=== PATIENT | female | born 1940 | race Caucasian/White ===

== ENCOUNTER 2018-12-23 20:44 | Observation (INO) | payer OTHER ==
[~2018-12-23] VITALS: Ht 165.1 cm; Wt 79.4 kg
[~2018-12-23 20:44] MED LIST: ANTIVERT12.5 MG PO; BUSPAR5 MG PO; GLIPIZIDE10 MG PO; LISINOPRIL20 MG PO; LOVASTATIN20 MG PO; METFORMIN HCL1000 MG PO; METOPROLOL TART25 M1 PO; OMEPRAZOLE DR20 M1 PO; VERAPAMIL240 M1 PO
[2018-12-23 21:28] LABS: BASOPHIL % 0.6 % (0-2); PLATELET COUNT 262 x10^3mcL (130-400)
[2018-12-23 21:29] LABS: RED CELL DISTRIBUTION WIDTH 16.2 % (11.5-14.5)
[2018-12-23 21:35] VITALS: Ht 165.1 cm; Wt 79.4 kg
--- NOTE | 2018-12-23 21:35 | NUR ---
PT. BIB AMBULACE FOR C/O GENERALIZED WEAKNESS, HEAVY FEELING IN SHOULDERS, AND N/V X1 EPISODE TODAY. DENIES CHEST PAIN OR FEELING SOB. STATES SHE HAD SOME CHANGES IN HER MEDICATIONS FEW DAY AGO AND RECENTLY STARTED TAKEN NEW B/P MEDICATION. PT. AAOX4, TALKING AND RESPONDING APPROPRIALTEY, BREATHING E/U. NAD. DENIES CHEST PAIN AT THIS TIME. FAMILY AT BEDSIDE. WILL CONTINUE TO MONITOR.
[2018-12-23 21:37] LABS: CALCIUM 8.7 mg/dL (8.5-10.1); CARBON DIOXIDE 25.4 mmol/L (21-32); CHLORIDE SERUM 100 mmol/L (98-107); CREATININE SERUM 1.5 mg/dL (0.6-1.0); GLUCOSE SERUM 269 mg/dL (74-106); POTASSIUM SERUM 4.8 mmol/L (3.5-5.1); SODIUM SERUM 134 mmol/L (136-145)
[2018-12-23 21:42] LABS: ALKALINE PHOSPHATASE 72 U/L (46-116); ALT/SGPT 156 U/L (14-59); AST/SGOT 220 U/L (15-37); BILIRUBIN TOTAL 0.29 mg/dL (0.20-1.00); TOTAL PROTEIN, SERUM 6.8 g/dL (6.4-8.2)
--- NOTE | 2018-12-23 22:37 | NUR ---
PT. LAYING ON GURNEY IN POSITION OF COMFORT, BREATHING E/U. AOOX4, NOT IN ANY APPARENT DISTRESS AT THIS TIME. CALL LIGHT IN REACH. FAMILY AT BEDSIDE. WILL CONTINUE TO MONITOR.
--- NOTE | 2018-12-23 22:39 | NUR ---
PT. PLACED ON BED OLVERA TO COLLECT URINE SAMPLE.
--- NOTE | 2018-12-23 22:54 | NUR ---
PT. UNABLE TO VOID AT THIS TIME.
--- NOTE | 2018-12-23 23:45 | NUR ---
PT. UP TO RESTROOM, AMBULATES WITH STEADY GAIT.
[2018-12-24] MEDS ORDERED: TENORMIN100 MG (00:13)
[2018-12-24] MEDS ORDERED: OYSCO 500-VIT1 EACH (00:13)
[2018-12-24] MEDS ORDERED: ACT30 (00:13)
[2018-12-24] MEDS ORDERED: SIMVASTATIN20 M1 (00:14)
--- NOTE | 2018-12-24 00:36 | NUR ---
REPORT GIVEN TO HELLEN PRITCHETT FOR FURTHER CARE OF PATIENT, ALL QUESTIONS AND CONCERNS ADDRESSED. WILL BE TRANSFERED TO TELE [id number].
--- NOTE | 2018-12-24 00:50 | NUR ---
RECEIVED PT VIA [facility] FROM E/D, ACCOMPANIED BY RN, TRANSPORTER, AND DAUGHTER (KYRIE PEARSON). PT A/A/O X 4, CALM, COOPERATIVE. PT AMBULATED FROM [place] TO BED WITHOUT GAIT OR BALANCE IMPAIRMENT; PT DENIES WEAKNESS AT THIS TIME. ON TELE # [id number], SB, HR 59, DENIES CHEST PAIN OR DISCOMFORT AT THIS TIME. NO ACUTE RESPIRATORY DISTRESS NOTED. IV SITE LAC 20G, CDI. ORIENTED PT AN DAUGHTER TO ROOM, BED CONTROLS, CALL LIGHT SYSTEM. SIDE RAILS UP X 2, BED IN LOW POSITION. WILL ENDORSE TO [facility].
[2018-12-24 00:56] LABS: UA SPECIFIC GRAVITY >=1.030 (1.005-1.035)
[2018-12-24 00:57] LABS: microscopic required? YES; urine erythrocyte TRACE (NEGATIVE)
[2018-12-24 01:14] VITALS: BP 122/51
--- NOTE | 2018-12-24 05:40 | NUR ---
PT SLEPT WELL DURING SHIFT. NO SOB ON ROOM AIR. NO C/O PAIN. DENIES DIZZINESS OR NAUSEA. NO DISTRESS NOTED. SAFETY MEASURES MAINTAINED. CALL LIGHT WITHIN REACH. WILL ENDORSE CONTINUITY OF CARE TO ONCOMING RN.
[2018-12-24 05:46] VITALS: BP 120/45
[2018-12-24 06:14] LABS: BASOPHIL % 0.3 % (0-2); PLATELET COUNT 238 x10^3mcL (130-400)
[2018-12-24 06:25] LABS: CALCIUM 8.1 mg/dL (8.5-10.1); CHLORIDE SERUM 106 mmol/L (98-107); CREATININE SERUM 1.1 mg/dL (0.6-1.0); GLUCOSE SERUM 159 mg/dL (74-106); POTASSIUM SERUM 4.2 mmol/L (3.5-5.1); SODIUM SERUM 137 mmol/L (136-145)
[2018-12-24 06:40] LABS: RED CELL DISTRIBUTION WIDTH 16.1 % (11.5-14.5)
[2018-12-24 07:29] VITALS: BP 126/61
--- NOTE | 2018-12-24 07:38 | NUR ---
RECEIVED PATIENT FROM [facility]REY[facility] MACEDO,PATIENT IN BED RESTING. NO COMPLAINTS OF PAIN AT THIS TIME. DENIES DIZZINESS OR SYNCOPAL EPISODE. WILL CONTINUE TO MONITOR. CALL LIGHT IN REACH.
--- NOTE | 2018-12-24 09:37 | NUR ---
SPOKE WITH DR HEARD ABOUT PATIENT PLAN OF CARE. STATES HE WILL OBSERVE PATIENT FOR A FEW MORE HOURS & DISCHARGE HER AFTER LUNCH. WILL DC HOME [facility]. WILL NOTIFY CHARGE NURSE DEL. PATIENT IN BED AT THIS TIME, NO COMPLAINTS.
[2018-12-24 10:45] VITALS: BP 126/61
--- NOTE | 2018-12-24 12:12 | NUR ---
INFORMED BY SILVA BARROW THAT PATIENT STATES SHE IS FEELING SWEATY WITH "HOT FLASHES". BS CHECK W 58. ORANGE JUICE GIVEN PO, WILL RETAKE BS IN 15 MINS.
[2018-12-24 12:15] VITALS: BP 126/70
--- NOTE | 2018-12-24 14:38 | NUR ---
PATIENT IN BED W NO COMPLAINTS. DAUGHTER AT BEDSIDE. DISCHARGE INSTRUCTIONS EXPLAINED TO PATIENT. ALL QUESTIONS ANSWERED. TELE MONITOR RETURNED TO [facility], IV CATHETER REMOVED AND INTACT. DISCHARGE PACKET GIVEN TO PATIENT, PATIENT WILL BE ESCORTED DOWN STAIRS VIA WHEELCHAIR W SILVA BARROW. PATIENT WITH BELONGINGS.
== END 2018-12-24 14:48 | disposition home or self-care (01) | DRG 312 ==
LOC: ED 20:44 → DU 23:24
PROVIDERS: Emergency Medicine; ADMIT Internal Medicine Pulmonary Disease
DX: R55 Syncope and collapse (principal); N17.9 Acute kidney failure, unspecified; R00.1 Bradycardia, unspecified; T46.1X5A Adverse effect of calcium-channel blockers, initial encounter; T44.7X5A Adverse effect of beta-adrenoreceptor antagonists, initial encounter; E86.0 Dehydration; E11.9 Type 2 diabetes mellitus without complications; I10 Essential (primary) hypertension; E78.5 Hyperlipidemia, unspecified; F32.9 Major depressive disorder, single episode, unspecified; F41.9 Anxiety disorder, unspecified; Z85.828 Personal history of other malignant neoplasm of skin; Y92.009 Unspecified place in unspecified non-institutional (private) residence as the place of occurrence of the external cause
CPT/HCPCS: 82962; G0378; J1650; J7030; J8597; Q0092

== ENCOUNTER 2019-05-28 17:13 | Emergency (ER) | payer OTHER ==
[~2019-05-28] VITALS: Ht 165.1 cm; Wt 81.6 kg
[~2019-05-28 17:13] MED LIST changes: +ACT30; +OYSCO 500-VIT1 EACH; +SIMVASTATIN20 M1; +TENORMIN100 MG
[2019-05-28 17:15] VITALS: Ht 165.1 cm; Wt 81.6 kg
[2019-05-28 18:44] LABS: BASOPHIL % 0.7 % (0-2); PLATELET COUNT 313 x10^3mcL (130-400)
[2019-05-28 18:45] LABS: CALCIUM 9.3 mg/dL (8.5-10.1); CARBON DIOXIDE 27.8 mmol/L (21-32); CHLORIDE SERUM 103 mmol/L (98-107); CREATININE SERUM 1.2 mg/dL (0.6-1.0); GLUCOSE SERUM 173 mg/dL (74-106); POTASSIUM SERUM 3.8 mmol/L (3.5-5.1); RED CELL DISTRIBUTION WIDTH 17.4 % (11.5-14.5); SODIUM SERUM 139 mmol/L (136-145)
[2019-05-28 19:24] VITALS: BP 156/54
== END 2019-05-28 19:24 | disposition home or self-care (01) ==
LOC: ED 17:13
PROVIDERS: Emergency Medicine
DX: M54.2 Cervicalgia (principal); M79.10 Myalgia, unspecified site; I10 Essential (primary) hypertension; E11.9 Type 2 diabetes mellitus without complications; E78.5 Hyperlipidemia, unspecified; Z88.2 Allergy status to sulfonamides; V49.49XA Driver injured in collision with other motor vehicles in traffic accident, initial encounter; Y93.I9 Activity, other involving external motion; Y92.413 State road as the place of occurrence of the external cause; Y99.8 Other external cause status
CPT/HCPCS: 36415; Q0092